=== PATIENT | male | born 1980 | race Asian ===

== ENCOUNTER 2021-09-04 06:52 | Day surgery (SDC) | payer MEDICAID ==
[2021-09-01 11:43] LABS: BASOPHILS % (AUTO) 0.8 % (0.0-2.0); HEMATOCRIT 51.6 % (41-53); HEMOGLOBIN 17.3 g/dL (13.5-17.5); LYMPHOCYTES # (AUTO) 3.6 K/uL (1.0-4.8); LYMPHOCYTES % (AUTO) 38.2 % (22.0-44.0); MEAN CORPUSCULAR HEMOGLOBIN 29.3 pg (26.0-34.0); MEAN CORPUSCULAR HGB CONC 33.6 G/dL (31.0-37.0); MEAN CORPUSCULAR VOLUME 87 fL (80-100); MONOCYTES # (AUTO) 0.8 K/uL (0.1-1.0); MONOCYTES % (AUTO) 8.3 % (2.0-9.0); NEUTROPHILS # (AUTO) 4.7 K/uL (1.8-7.7); NEUTROPHILS % (AUTO) 49.7 % (40.0-70.0); PLATELET COUNT (AUTO) 333 K/uL (150-450); RED BLOOD CELL COUNT(AUTO) 5.91 MIL/uL (4.50-5.90); RED CELL DISTRIBUTION WIDTH 13.1 % (11.5-14.5)
[2021-09-01 11:50] LABS: ANION GAP 10 mmol/L (8-16); CALCIUM, TOTAL 9.5 mg/dL (8.8-10.5); CARBON DIOXIDE 29 mmol/L (22-29); CHLORIDE 105 mmol/L (98-107); GLOMERULAR FILTR. RATE CALC > 60 mL/min (>60); GLUCOSE,RANDOM 108 mg/dL (70-110); POTASSIUM 4.3 mmol/L (3.5-5.1); SODIUM SERUM 144 mmol/L (136-145); UREA NITROGEN, BLOOD 10 mg/dL (7-18)
[2021-09-01 11:56] LABS: PROTHROMBIN TIME 10.5 SEC (9.4-11.6)
[2021-09-01 11:57] LABS: COVID AG,FIA SOURCE NASOPHARYNGEAL
[~2021-09-04] VITALS: Ht 167.6 cm; Wt 72.7 kg
[~2021-09-04 06:52] MED LIST: SIMV-260 PO; SODIUM CHLORIDE 0.9% 1,000 ML ONE
[2021-09-04] MEDS ORDERED: SODIUM CHLORIDE 0.9% 1,000 ML IV ONE (07:00)
[2021-09-04] MEDS ORDERED: IOHEXOL 300 MG/ML 50 ML VIAL ONE (08:32)
[2021-09-04] MEDS ORDERED: IOHEXOL 300 MG/ML 100 ML VIAL ONE (08:32)
[2021-09-04] MEDS ORDERED: SODIUM BICARBONATE 50 MEQ/50 ML VIAL ONE (08:32)
[2021-09-04] MEDS ORDERED: IOHEXOL 300 MG/ML 150 ML VIAL ONE (08:32)
[2021-09-04] MEDS ORDERED: LIDOCAINE/PF 1% 30 ML VIAL ONE (08:32)
[2021-09-04] MEDS ORDERED: HEPARIN SODIUM 1000 UNITS/NS 1,000 ML ONE (08:33)
[2021-09-04] MEDS ORDERED: FentaNYL CITRATE PF 100 MCG/2 ML VIAL ONE (08:45)
[2021-09-04] MEDS ORDERED: MIDAZOLAM HCL 2 MG/2 ML VIAL ONE (08:46)
[2021-09-04 09:00] VITALS: BP 143/93
[2021-09-04] MEDS ORDERED: HEPARIN SODIUM 2,000 UNITS in HEPARIN SODIUM 1000 UNITS/NS 1,000 ML IARTER ONE (09:15)
[2021-09-04] MEDS ORDERED: LIDOCAINE 1% 30 ML/SOD BICARB 8.4% 4 ML SQ ONE (09:15)
[2021-09-04] MEDS ORDERED: IOHEXOL 300 MG/ML 150 ML VIAL IARTER ONE (09:15)
[2021-09-04 09:30] VITALS: BP 143/87
== END 2021-09-04 14:25 | disposition home or self-care (01) ==
LOC: CATHLAB 06:52
PROVIDERS: ATTEND Internal Medicine Cardiovascular Disease
DX: R94.39 Abnormal result of other cardiovascular function study (principal); R07.9 Chest pain, unspecified; E78.00 Pure hypercholesterolemia, unspecified; E78.5 Hyperlipidemia, unspecified; Z72.89 Other problems related to lifestyle; Z79.899 Other long term (current) drug therapy; Z98.890 Other specified postprocedural states
CPT/HCPCS: 36415; 80048; 85025; 85610; 85730; 87426; 93005; 93458; C1760; C9803; J1644; J3490 ×2; J7030; Q9967 ×2; J2250; J3010